=== PATIENT | male | born 1965 | race Hispanic/Latino ===

== ENCOUNTER 2018-01-17 19:13 | Emergency (ER) | payer SELFPAY ==
[2018-01-17] MEDS ORDERED: ONDANSETRON HCL 4 MG/2 ML VIAL ONE (19:55)
[2018-01-17] MEDS ORDERED: MORPHINE SULFATE 4 MG/1ML SYG ONE (19:56)
[2018-01-17] MEDS ORDERED: TETANUS/DIPHTHERIA TOXOID [ADULT] 0.5 ML VIAL IM ONE (19:57)
[2018-01-17 20:18] LABS: BASOPHILS % (AUTO) 0.7 % (0.0-5.0); HEMATOCRIT 41.6 % (42-54); LYMPHOCYTES % (AUTO) 33.6 % (21.0-51.0); MEAN CORPUSCULAR HEMOGLOBIN 28.2 pg (27.0-33.0); MEAN CORPUSCULAR VOLUME 85.4 fL (79-99); MONOCYTES % (AUTO) 4.8 % (3.0-13.0); NEUTROPHILS % (AUTO) 58.9 % (40.0-77.0); PLATELET COUNT (AUTO) 252 K/uL (130-400); RED BLOOD CELL COUNT(AUTO) 4.87 MIL/uL (4.50-6.20); RED CELL DISTRIBUTION WIDTH 14.4 % (11.0-15.5); WHITE BLOOD COUNT (AUTO) 11.4 K/uL (4.8-10.8)
[2018-01-17 20:26] LABS: CREATININE 1.3 mg/dL (0.5-1.5); POTASSIUM 3.6 mmol/L (3.5-5.1)
[2018-01-17 20:30] LABS: ALBUMIN 4.2 g/dL (3.5-5.0); BILIRUBIN,TOTAL 0.3 mg/dL (0.2-1.0); TOTAL PROTEIN, SERUM 8.3 g/dL (6.0-8.3)
[2018-01-17] MEDS ORDERED: KETOROLAC TROMETHAMINE 30MG/ML ONE (21:13)
== END 2018-01-17 23:14 | disposition home or self-care (01) ==
LOC: EDH 19:13
DX: S80.211A Abrasion, right knee, initial encounter (principal); F10.129 Alcohol abuse with intoxication, unspecified; Z72.0 Tobacco use; W23.0XXA Caught, crushed, jammed, or pinched between moving objects, initial encounter; Y93.89 Activity, other specified; Y92.89 Other specified places as the place of occurrence of the external cause; Y99.8 Other external cause status
CPT/HCPCS: 36415; 73552; 73562; 73590; 80053; 73610; 85025; 90471; 90714; 96374; 96375; 99285; G0480; J1885; J2270; J2405